=== PATIENT | male | born 1995 | race Two or more races ===

== ENCOUNTER 2023-09-10 08:11 | Emergency (ER) | payer OTHER ==
[~2023-09-10] VITALS: Ht 182.9 cm; Wt 86.7 kg
[2023-09-10 09:35] VITALS: TEMP 97.9
[2023-09-10] MEDS ORDERED: AMOX500T3 PO (12:18)
[2023-09-10] MEDS ORDERED: CLIN1CAP70 PO (12:18)
[2023-09-10 12:29] VITALS: BP 121/61; PULSE 100; RESP 18; O2SAT 100
== END 2023-09-10 12:30 | disposition home or self-care (01) ==
LOC: ER 08:11
DX: N45.1 Epididymitis (principal)
CPT/HCPCS: 76870